=== PATIENT | female | born 1970 | race American Indian/Alaskan Native ===

== ENCOUNTER 2018-04-05 13:12 | Outpatient (CLI) | payer MEDICARE, OTHER ==
--- NOTE | 2018-04-06 14:19 | Ultrasound Report ---
LEFT BREAST ULTRASOUND: 04/05/18 13:12:00 CLINICAL: Left breast lumps. Breast cancer survivor status post bilateral mastectomy with implant reconstruction. COMPARISON: None. FINDINGS: Ultrasound of the left breast was performed in the area of concern from 10 o'clock to 12 o'clock 5 cm from the nipple. An oval subcutaneous anechoic cyst is identified at 12 o'clock 5 cm from the nipple and measures 5 x 1 x 5 mm. A similar tiny cyst at 10 o'clock 5 cm from the nipple measures 2 x 1 x 2 mm. No solid mass or shadowing. The implant is intact. IMPRESSION: Probably benign subcutaneous cysts at 10 o'clock and 12 o'clock 5 cm from the nipple. I suspect that these represent benign fat necrosis. BI-RADS 3 - - Probably Benign RECOMMENDATION: Short-term followup left breast ultrasound in three months.
== END 2018-04-05 13:13 | disposition home or self-care (01) ==
LOC: SPVWC 13:12
PROVIDERS: ATTEND Internal Medicine Hematology & Oncology
DX: C50.919 Malignant neoplasm of unspecified site of unspecified female breast (principal); Z90.13 Acquired absence of bilateral breasts and nipples

== ENCOUNTER 2018-07-20 10:30 | Outpatient (CLI) | payer MEDICARE, OTHER ==
--- NOTE | 2018-07-20 11:37 | Ultrasound Report ---
LEFT BREAST ULTRASOUND: 07/20/18 10:30:00 CLINICAL: Breast cancer survivor status post bilateral mastectomy with implant reconstruction. Followup probably benign cysts. COMPARISON: 04/05/18 FINDINGS: Ultrasound of the left breast was performed in the area of concern from ten to 12 o'clock. The previously described thickwalled distal cyst at 12 o'clock 5 cm from the nipple now measures 4 x 1 x 6 mm compared to 5 x 1 x 5 mm on the last exam. Benign cysts at 11 o'clock 8 cm from the nipple measuring 8 x 3 x 8 mm and 6 x 2 x 6 mm. A benign cyst at 10 o'clock 5 cm from the nipple measures 4 x 1 x 4 mm. IMPRESSION: Benign subcutaneous cysts from 10 o'clock to 12 o'clock which are consistent with benign fat necrosis. The previously described cyst at 12 o'clock is slightly smaller. BI-RADS 2 - - Benign RECOMMENDATION: Clinical followup.
== END 2018-07-20 10:31 | disposition home or self-care (01) ==
LOC: SPVWC 10:30
PROVIDERS: ATTEND Internal Medicine Hematology & Oncology
DX: N60.02 Solitary cyst of left breast (principal)